=== PATIENT | male | born 1970 | race African-American/Black ===

== ENCOUNTER 2024-08-08 20:01 | Emergency (ER) | payer MEDICAID, OTHER ==
[~2024-08-08] VITALS: Ht 177.8 cm; Wt 85.0 kg
[2024-08-08 21:28] LABS: BASOPHILS % 0.8 % (0.0-2.0); EOSINOPHILS % 0.9 % (0.0-5.0); HEMATOCRIT. 43.9 % (42.0-52.0); HEMOGLOBIN. 14.4 g/dL (14.0-18.0); LYMPHOCYTES % 13.2 % (20.0-50.0); MEAN CORPUSCULAR HEMOGLOBIN 28.4 pg (28.0-32.0); MEAN CORPUSCULAR HGB CONC 32.7 g/dL (31.0-37.0); MEAN CORPUSCULAR VOLUME 86.8 fL (80.0-94.0); MONOCYTES % 9.5 % (2.0-8.0); NEUTROPHILS % 75.6 % (40.0-76.0); PLATELET 238 x1000/uL (130-400); RED BLOOD CELL COUNT 5.06 mill/uL (4.7-6.1); RED CELL DISTRIBUTION WIDTH 14.1 % (11.6-14.6)
[2024-08-08 21:35] LABS: POTASSIUM 5.8 mEq/L (3.5-5.1); PROTHROMBIN TIME 10.9 sec (9.6-11.0)
[2024-08-08 21:36] LABS: CALCIUM 9.2 mg/dL (8.7-10.4)
[2024-08-08 21:41] LABS: CREATININE 3.6 mg/dL (0.6-1.3)
[2024-08-08 22:21] LABS: ALANINE AMINOTRANSFERASE 25 IU/L (10-49); ALBUMIN 4.5 g/dL (3.2-4.8); ASPARTATE AMINOTRANSFERASE 13 IU/L (<34); BILIRUBIN DIRECT 0.2 mg/dL (<=3.0); BILIRUBIN TOTAL 0.6 mg/dL (0.1-1.0); ETHANOL BLOOD < 10 mg/dL (<10); PROTEIN TOTAL 7.1 g/dL (6.0-8.3)
[2024-08-08] MEDS: INSULIN REGULAR (HUMULIN R) 1000UNITS/10ML VIAL IV NR (22:35)
[2024-08-08] MEDS: ONDANSETRON HCL 4MG/2ML INJ IV STA (22:36)
[2024-08-08] MEDS: SODIUM BICARBONATE 8.4% 50MEQ/50ML SYR IV NR (22:36)
[2024-08-08] MEDS: SODIUM POLYSTYRENE SULFONATE 15 G/60 ML BOT PO NR (22:36)
[2024-08-08] MEDS: DEXTROSE 50% WATER 50ML SYRINGE IV NR (22:36)
[2024-08-08] MEDS: SODIUM CHLORIDE 0.9% 1,000 ML IV NR (22:36)
[2024-08-09 00:19] VITALS: PULSE 96; RESP 22; O2SAT 97
[2024-08-09] MEDS: ALBUTEROL (0.083%) 2.5MG/3ML NEB HHN SCH (00:19)
[2024-08-09 01:13] LABS: POTASSIUM 5.1 mEq/L (3.5-5.1)
[2024-08-09 01:19] LABS: CREATININE 3.4 mg/dL (0.6-1.3)
[2024-08-09] MEDS ORDERED: SODIUM CHLORIDE 0.9% 1,000 ML IV ONE (02:15)
[2024-08-09 02:34] VITALS: BP 126/71; PULSE 89; RESP 18; TEMP 36.9; O2SAT 97
== END 2024-08-09 03:49 | disposition short-term general hospital (02) ==
LOC: ER 20:01
DX: E87.5 Hyperkalemia (principal); N17.9 Acute kidney failure, unspecified; E86.0 Dehydration; R06.02 Shortness of breath; E11.9 Type 2 diabetes mellitus without complications; I10 Essential (primary) hypertension
CPT/HCPCS: 80076; 80048 ×2; 80320; 83605; 83690; 85025; 85610; 36415 ×2; 71045; 74176; 96361; 96374; 96375; 99291; 94640; 93005; J2405; J3490; Z7610 ×3; J7030; G0480